=== PATIENT | female | born 1945 | race Caucasian/White ===

== ENCOUNTER → 2016-07-22 | Outpatient (CLI) | payer OTHER ==
[2016-07-22 12:32] LABS: CALCIUM 9.1 mg/dl (8.5-10.1)
[2016-07-22 12:34] LABS: ALT/SGPT 33 U/L (12-78); BLOOD UREA NITROGEN 16 mg/dl (7-18); CARBON DIOXIDE 28 mmol/L (21-32); CHLORIDE 108 mmol/L (98-107); CHOLESTEROL 155 mg/dl (0-200); CREATININE 0.96 mg/dl (0.60-1.20); GLUCOSE 97 mg/dl (70-99); POTASSIUM 4.1 mmol/L (3.5-5.1); SODIUM 143 mmol/L (136-145); TRIGLYCERIDES 124 mg/dl (0-150); VERY LOW DENSITY LIPOPROT CALC 25 mg/dl
[2016-07-22 13:15] LABS: ALB/GLOB RATIO 1.4 (0.9-2); ALKALINE PHOSPHATASE 55 U/L (45-117); CHOLESTEROL/HDL RATIO 3.4; HDL CHOLESTEROL 45 mg/dl; LDL CHOLESTEROL CALCULATED 85 mg/dl
[2016-07-22 14:18] LABS: AST/SGOT 19 U/L (15-37)
== END | disposition home or self-care (01) ==
LOC: C.LABBFT 08:52
PROVIDERS: ATTEND Internal Medicine
DX: Z00.00 Encounter for general adult medical examination without abnormal findings (principal); I10 Essential (primary) hypertension; E78.5 Hyperlipidemia, unspecified

== ENCOUNTER → 2016-09-16 | Outpatient (CLI) | payer OTHER ==
[2016-09-16 13:11] LABS: BLOOD UREA NITROGEN 20 mg/dl (7-18); BUN/CREATININE RATIO 16.8 (10-20); CALCIUM 9.7 mg/dl (8.5-10.1); CARBON DIOXIDE 26 mmol/L (21-32); CHLORIDE 106 mmol/L (98-107); GLUCOSE 105 mg/dl (70-99); POTASSIUM 4.3 mmol/L (3.5-5.1); SODIUM 139 mmol/L (136-145)
== END | disposition home or self-care (01) ==
LOC: C.LABBFT 09:55
PROVIDERS: ATTEND Internal Medicine
DX: I10 Essential (primary) hypertension (principal)